=== PATIENT | female | born 1975 | race Caucasian/White ===

== ENCOUNTER 2021-12-05 04:29 | Day surgery (SDC) | payer OTHER ==
[2021-12-01 12:23] VITALS: BMI 25.0
[2021-12-05 08:42] VITALS: TEMP 97.2
[2021-12-05 10:04] LABS: BASO % 1.1 % (0-2.0); EOS % 3.6 % (0-4.5); HEMATOCRIT 41.4 % (32.4-45.2); HEMOGLOBIN 13.8 GM/dL (10.7-15.3); LYMPH % 32.1 % (8-40); MCH 30.4 pg (25.7-33.7); MCHC 33.3 g/dl (32.0-36.0); MEAN CELL VOLUME 91.3 fl (80-96); MEAN PLT VOLUME 8.6 fl (7.5-11.1); MONO % 5.5 % (3.8-10.2); NEUT % 57.7 % (42.8-82.8); PLATELET COUNT 352 10^3/uL (134-434); RBC 4.54 M/mm3 (3.60-5.2); RDW 12.7 % (11.6-15.6)
[2021-12-05 10:13] LABS: INR 1.12 (0.83-1.09); PROTHROMBIN TIME (PATIENT) 12.9 SEC (9.7-13.0)
[2021-12-05] MEDS ORDERED: ACETAMINOPHEN 325 MG TABLET (FP) PO ONE (11:00)
[2021-12-05] MEDS ORDERED: SODIUM CHLORIDE 250 ML IV ONE (11:00)
[2021-12-05 12:12] LABS: BF GLUCOSE (CSF ONLY) 56 mg/dL (40-70)
[2021-12-05 12:40] LABS: CSF COLOR PINK (COLORLESS)
[2021-12-05 12:41] LABS: CSF WBC 0 mm3 (0-5)
[2021-12-05 12:42] LABS: CSF APPEARANCE CLOUDY (CLEAR)
[2021-12-05 16:02] VITALS: RESP 20
[2021-12-05 16:03] VITALS: BP 116/69; PULSE 57
== END 2021-12-05 12:10 | disposition home or self-care (01) ==
LOC: JRADIR 04:29
PROVIDERS: ATTEND Psychiatry & Neurology Neurology
PROC: 009U3ZX Drainage of Spinal Canal, Percutaneous Approach, Diagnostic (ICD-10-PCS; principal; 2021-12-05)
DX: G35 Multiple sclerosis (principal)
CPT/HCPCS: 36415; 62272; 81025; 82784; 82787; 82945; 83873; 83916; 84157; 85025; 85610

== ENCOUNTER → 2024-05-29 | Day surgery (SDC) | payer OTHER, MEDICARE | END | disposition home or self-care (01) | LOC: FMAMMOTONE 08:29 | PROVIDERS: ATTEND Specialist | PROC: 0HBT3ZX Excision of Right Breast, Percutaneous Approach, Diagnostic (ICD-10-PCS; principal; 2024-05-29) | DX: N60.11 Diffuse cystic mastopathy of right breast (principal); N64.89 Other specified disorders of breast; R92.1 Mammographic calcification found on diagnostic imaging of breast | CPT/HCPCS: 19081; 76098-TC-FY; 87899; 88305-TC; A4648 ==